=== PATIENT | male | born 1950 | race Caucasian/White ===

== ENCOUNTER 2018-08-22 07:33 | Emergency (ER) | payer OTHER ==
[~2018-08-22] VITALS: Ht 182.9 cm; Wt 90.9 kg
[2018-08-22 07:49] LABS: BASO # 0.1 (0.0-0.2); BASO % 0.4 % (0.0-2.0); EOS # 0.1 (0.0-0.7); EOS % 0.8 % (0-4.0); GRAN # 12.6 (1.4-6.5); GRAN % 68.1 % (42.2-75.2); HEMATOCRIT 51.3 % (42.0-52.0); HEMOGLOBIN 16.6 g/dl (13.5-18.0); LYMPH # 4.4 (1.2-3.4); LYMPH % 23.8 % (20.0-51.0); MEAN CELL VOLUME 88 fl (80.0-100.0); MEAN CORPUSCULAR HEMOGLOBIN 29 pg (27.0-31.0); MEAN CORPUSCULAR HGB CONC 32 g/dl (33.0-37.0); MEAN PLATELET VOLUME 10.6 fl (7.4-10.4); MONO # 1.1 (0.1-0.6); PLATELET COUNT 290 K/mm3 (130-400); REDCELL DISTRIBUTION WIDTH-CV 13.6 % (11.5-14.5)
[2018-08-22 08:02] LABS: INR 1.1 (0.8-3.0); PROTHROMBIN TIME 12.5 SECONDS (9.7-12.8)
[2018-08-22 08:53] LABS: ALANINE AMINOTRANSFERASE 36 U/L (21-72); ALBUMIN 4.5 gm/dL (3.5-5.0); ALKALINE PHOSPHATASE 73 U/L (50-136); ANION GAP 29 mmol/L (7-16); AST,SGOT 43 U/L (15-37); BILIRUBIN,TOTAL 0.3 mg/dL (0.0-1.0); BLOOD UREA NITROGEN 11 mg/dL (9-20); CALCIUM 9.1 mg/dL (8.4-10.2); CHLORIDE 103 mmol/L (98-107); CREATININE, serum 1.26 mg/dL (0.66-1.25); GLUCOSE 219 mg/dL (74-106); POTASSIUM 3.9 mmol/L (3.4-5.0); SODIUM 141 mmol/L (137-145); TOTAL PROTEIN 7.4 gm/dL (6.4-8.2)
[2018-08-22 08:55] LABS: ACETAMINOPHEN < 10 ug/mL (10-30); ALCOHOL(ethanol),MEDICAL < 10 mg/dL; CARBON DIOXIDE 9 mmol/L (22-30); SALICYLATE < 1.0 mg/dL
[2018-08-22 09:07] LABS: TROPONIN-I < 0.012 ng/mL (0.000-0.034)
[2018-08-22 09:14] LABS: ARTERIAL BLD GAS O2 SATURATION 98.2 % (92-100); ARTERIAL BLD GAS TCO2 CT 13.7; ARTERIAL BLOOD GAS BASE EXCESS -14.7 (-2-2); ARTERIAL BLOOD GAS HCO3 12.7 meq/L (22-26); ARTERIAL BLOOD GAS PCO2 34.8 mmHg (35-45)
[2018-08-22 09:15] LABS: ARTERIAL BLOOD GAS PO2 157.6 mmHg (80-100); ARTERIAL BLOOD GAS pH 7.18 (7.35-7.45)
[2018-08-22 09:16] LABS: COLLECTION METHOD CLEAN CATCH
[2018-08-22 09:22] LABS: MUCOUS Present /lpf; PH 5 (5-8); SQUAMOUS EPITHELIAL 0-2 /hpf; URINE APPEARANCE Hazy; URINE BACTERIA Rare /hpf; URINE BILIRUBIN Negative (NEGATIVE); URINE BLOOD 2+ (NEGATIVE); URINE COLOR Yellow; URINE GLUCOSE Negative (NEGATIVE); URINE KETONE Negative (NEGATIVE); URINE LEUKOCYTE ESTERASE Negative (NEGATIVE); URINE NITRATE Negative (NEGATIVE); URINE PROTEIN(semi-quant) 3+ (NEGATIVE); URINE RBC 0-2 /hpf; URINE UROBILINOGEN Negative (NEGATIVE)
[2018-08-22 09:42] VITALS: BP 101/53; PULSE 93
[2018-08-22 09:48] VITALS: TEMP 97.5
== END 2018-08-22 10:23 | disposition short-term general hospital (02) ==
LOC: COL.ER 07:33
PROVIDERS: Emergency Medicine
DX: G40.901 Epilepsy, unspecified, not intractable, with status epilepticus (principal); Z87.891 Personal history of nicotine dependence
CPT/HCPCS: A4314; J0692; J1953; J2060; J2250; J3010; J3370; J7030; J7050; J7060